=== PATIENT | male | born 1975 | race Caucasian/White ===

== ENCOUNTER 2020-02-20 07:00 | Outpatient (CLI) | payer BC, OTHER ==
--- NOTE | 2020-02-20 16:00 | XRAY Report ---
PROCEDURE: Chest 2 View X-Ray INDICATIONS: CHEST CONGESTION TECHNIQUE: 2 view(s) of the chest. COMPARISON: None. FINDINGS: Surgical changes and devices: None. Lungs and pleura: No pleural effusions or pneumothorax. Lungs are clear. Mediastinum: Mediastinal contours are normal. Heart size is normal. Bones and chest wall: No suspicious bony abnormalities. Soft tissues appear unremarkable. IMPRESSION: Chest without acute cardiopulmonary abnormalities or focal airspace disease. Reviewed by: Ortega Harper MD on 02/20/2020 2:59 PM [facility] Approved by: Ortega Harper MD on 02/20/2020 2:59 PM [facility] Station ID: [id number]
== END 2020-02-20 23:59 | disposition home or self-care (01) ==
LOC: DI.S 07:00
PROVIDERS: ATTEND Physician Assistant Medical
DX: R06.02 Shortness of breath (principal); R09.89 Other specified symptoms and signs involving the circulatory and respiratory systems
CPT/HCPCS: 87275; 87276

== ENCOUNTER 2020-02-20 14:40 | Outpatient (CLI) | payer BC, OTHER | END 2020-02-20 23:59 | disposition home or self-care (01) | LOC: LAB.R 14:40 | PROVIDERS: ATTEND Physician Assistant Medical | DX: R06.02 Shortness of breath (principal); R09.89 Other specified symptoms and signs involving the circulatory and respiratory systems; Z20.828 Contact with and (suspected) exposure to other viral communicable diseases ==

== ENCOUNTER 2021-06-20 08:31 | Day surgery (SDC) | payer BC ==
[2021-06-20] MEDS ORDERED: LACTATED RINGERS 1,000 ML IV ONE ×2 (09:09→10:57)
--- NOTE | 2021-06-20 09:20 | ANESTHESIA ---
Pre-Anesthesia VS, & Labs - Diagnosis screening - Procedure colonoscopy Vital Signs: Temp Pulse Resp BP Pulse Ox 36.7 C 71 16 124/78 96 06/20/21 08:56 06/20/21 08:56 06/20/21 08:56 06/20/21 08:56 06/20/21 08:56 Height: 6 ft 1 in Weight (kg): 152.8 kg Body Mass Index: 44.4 BMI Classification: Morbidly Obese - NPO >8 hours Home Medications and Allergies Home Medications: Ambulatory Orders Losartan Potassium 25 mg PO DAILY 06/20/21 Mometasone/Formoterol [Dulera 50 Mcg-5 Mcg Inhaler] 2 puffs IH DAILY 06/20/21 Albuterol [Proventil Hfa] 1 puffs INH Q4-6H PRN 12/31/12 Losartan Potassium 25 mg PO DAILY 06/20/21 Mometasone/Formoterol [Dulera 50 Mcg-5 Mcg Inhaler] 2 puffs IH DAILY 06/20/21 Allergies/Adverse Reactions: Allergies Allergy/AdvReac Type Severity Reaction Status Date / Time No Known Drug Allergies Allergy Verified 06/20/21 09:12 Anes History & Medical History - Anesthetic History Anesthesia Complications: reports: No previous complications - Medical History Cardiovascular: reports: Hypertension Pulmonary: reports: None Gastrointestinal: reports: Hemorrhoids Urinary: reports: None Musculoskeletal: reports: None Endocrine/Autoimmune: reports: None Skin: reports: Other Smoking Status: Never smoker History of Cancer?: No - Surgical History General: reports: Appendectomy Orthopedic: reports: Arthroscopic surgery Exam General: Alert Dental: WNL Mouth Opening: Greater than 4 Fingerbreadths Neck Mobility: Normal Mallampati classification: II Thyromental Distance: greater than 6 cm Respiratory: Lungs clear Cardiovascular: Regular rate Plan Anesthesia Type: Total IV Consent for Procedure(s) Verified and Reviewed: Yes Code Status: Attempt Resuscitation ASA classification: 2-Mild systemic disease Is this case an emergency?: No
[2021-06-20] MEDS ORDERED: PROPOFOL 500 MG/50 ML 500 MG/50 ML VIAL ONE (09:39)
[2021-06-20] MEDS ORDERED: MIDAZOLAM 2 MG/2 ML VIAL ONE (10:25)
[2021-06-20 11:31] VITALS: BP 117/73
--- NOTE | 2021-06-20 11:45 | ANESTHESIA POST OP EVALUATION ---
Anesthesia Post Eval - Post Anesthesia Eval Vitals: Last Vital Signs Temp 36.2 C L 06/20/21 11:30 Pulse 75 06/20/21 11:30 Resp 16 06/20/21 11:30 BP 117/73 06/20/21 11:30 Pulse Ox 98 06/20/21 11:30 CV Function Including HR & BP: Stable Pain Control: Satisfactory Nausea & Vomiting: Negative Mental Status: Baseline Respiratory Status: Airway Patent Hydration Status: Satisfactory Anesthesia Complications: None
== END 2021-06-20 08:32 | disposition home or self-care (01) ==
LOC: SDS 08:31
PROVIDERS: ATTEND Surgery
PROC: 0DBP8ZZ Excision of Rectum, Via Natural or Artificial Opening Endoscopic (ICD-10-PCS; principal; 2021-06-20 09:45)
DX: Z12.11 Encounter for screening for malignant neoplasm of colon (principal); D12.8 Benign neoplasm of rectum; K64.8 Other hemorrhoids; E66.01 Morbid (severe) obesity due to excess calories; Z68.41 Body mass index [BMI] 40.0-44.9, adult; Z83.71 Family history of colonic polyps
CPT/HCPCS: 45380; J7120

== ENCOUNTER 2021-07-12 07:07 | Outpatient (CLI) | payer BC | END 2021-07-12 07:08 | disposition home or self-care (01) | LOC: LAB.S 07:07 | PROVIDERS: ATTEND Surgery | DX: Z01.812 Encounter for preprocedural laboratory examination (principal); K42.9 Umbilical hernia without obstruction or gangrene; Z20.822 Contact with and (suspected) exposure to COVID-19 ==

== ENCOUNTER 2021-07-13 08:53 | Day surgery (SDC) | payer BC ==
[2021-07-13] MEDS ORDERED: LACTATED RINGERS 1,000 ML IV ONE (09:09)
--- NOTE | 2021-07-13 10:48 | ANESTHESIA ---
Pre-Anesthesia VS, & Labs - Diagnosis umbilical hernia - Procedure umbilical hernia repair Vital Signs: Temp Pulse Resp BP Pulse Ox 37.0 C 70 16 144/83 H 97 07/13/21 09:19 07/13/21 09:19 07/13/21 09:19 07/13/21 09:19 07/13/21 09:19 Height: 6 ft 1 in Weight (kg): 154 kg Body Mass Index: 44.8 BMI Classification: Morbidly Obese - NPO >8 hours Home Medications and Allergies Albuterol [Proventil Hfa] 1 puffs INH Q4-6H PRN 12/31/12 Losartan Potassium 25 mg PO DAILY 06/20/21 Mometasone/Formoterol [Dulera 50 Mcg-5 Mcg Inhaler] 2 puffs IH DAILY 06/20/21 Allergies/Adverse Reactions: Allergies Allergy/AdvReac Type Severity Reaction Status Date / Time No Known Drug Allergies Allergy Verified 06/20/21 09:12 Anes History & Medical History - Anesthetic History Anesthesia Complications: reports: No previous complications - Medical History Cardiovascular: reports: Hypertension Pulmonary: reports: None, Asthma Gastrointestinal: reports: Hemorrhoids Urinary: reports: None Musculoskeletal: reports: None Endocrine/Autoimmune: reports: None Skin: reports: Other Smoking Status: Never smoker Psychosocial: reports: Alcohol (3-4 day) History of Cancer?: No - Surgical History General: reports: Appendectomy, Colonoscopy Orthopedic: reports: Arthroscopic surgery Exam General: Alert, Oriented x3 Dental: WNL Mouth Opening: Greater than 4 Fingerbreadths Mallampati classification: II Thyromental Distance: greater than 6 cm Respiratory: Lungs clear Cardiovascular: Regular rate Plan Anesthesia Type: General, MAC Consent for Procedure(s) Verified and Reviewed: Yes Code Status: Attempt Resuscitation ASA classification: 3-Severe systemic disease Is this case an emergency?: No
[2021-07-13] MEDS ORDERED: fentaNYL 100 MCG/2 ML VIAL IVP PRN (11:03)
[2021-07-13] MEDS ORDERED: HYDROmorphone 0.5 MG/0.5 ML SYRINGE IVP PRN (11:03)
[2021-07-13] MEDS ORDERED: ONDANSETRON 4 MG/2 ML VIAL IVP PRN (11:03)
[2021-07-13] MEDS ORDERED: BUPIVACAINE 0.25% PF 10 ML VIAL ONE (11:03)
[2021-07-13] MEDS ORDERED: MORPHINE 2 MG/ML CARPUJECT IVP PRN (11:03)
[2021-07-13] MEDS ORDERED: NALOXONE 0.4 MG/ML VIAL IVP PRN (11:03)
[2021-07-13] MEDS ORDERED: ATROPINE ABBOJECT 1 MG/10 ML SYRINGE IVP PRN (11:03)
[2021-07-13] MEDS ORDERED: MIDAZOLAM 2 MG/2 ML VIAL ONE (11:04)
[2021-07-13] MEDS ORDERED: LIDOCAINE-MPF 2% 5 ML VIAL ONE (11:04)
[2021-07-13] MEDS ORDERED: fentaNYL 100 MCG/2 ML VIAL ONE ×2 (11:04→11:37)
[2021-07-13] MEDS ORDERED: PROPOFOL 200 MG/20 ML VIAL IVP ONE (11:04)
[2021-07-13] MEDS ORDERED: ROCURONIUM 50 MG/5 ML VIAL ONE (11:04)
[2021-07-13] MEDS ORDERED: DEXAMETHASONE 10 MG/ML VIAL ONE (11:29)
[2021-07-13] MEDS ORDERED: BUPIVACAINE 0.25% PF 10 ML VIAL SUBQ ONE (11:38)
[2021-07-13] MEDS ORDERED: LACTATED RINGERS 1,000 ML IV SCH (12:00)
[2021-07-13] MEDS ORDERED: ONDANSETRON 4 MG/2 ML VIAL ONE (12:00)
[2021-07-13] MEDS ORDERED: KETOROLAC 30 MG/ML VIAL ONE (12:17)
[2021-07-13] MEDS ORDERED: SUGAMMADEX 200 MG/2 ML VIAL IVP ONE (12:24)
--- NOTE | 2021-07-13 12:26 | OPERATIVE REPORT ---
Operative Report - General Procedure Date: 07/13/21 Planned Procedure: Umbilical herniorrhaphy Pre-Op Diagnosis: Umbilical hernia Procedure Performed: Umbilical herniorrhaphy with mesh Post Op Diagnosis: Umbilical hernia - Procedure Note Primary Surgeon: Donavon Lux MD Anesthesia Provider: Ketty Ruiz CRNA Anesthesia Technique: General ET tube, Local (20 mL of 0.25% Marcaine) IV Fluids (mL): 1,000 Estimated Blood Loss (mL): 5 Drain/Tube Type: Other (None.) Indications: As above. Findings: As above. Complications: None. - Other Other Information/Narrative: After verbal and written informed consent was obtained detailing the operation, the alternatives the operation including no operation, risks of infection, bleeding requiring transfusion with its risks, nerve injury, and and after I met with the patient confirming the surgery and the site of surgery, the patient was brought to the operative suite and placed supine on the operating table. Great care was taken to avoid pressure points to prevent pressure necrosis or nerve injury. Monitoring devices were applied along with TEDs and pneumatic compression stockings (to prevent DVT). The patient received preoperative antibiotics for surgical prophylaxis. Ketty Ruiz CRNA sedated and anesthetized the patient for the entire procedure. The patient was prepped and draped in the usual sterile manner. A "time in" then confirmed that the patient was identified with 3 identifiers (name, date, and medical record number), the history and physical was updated and in the chart, the signed consent confirming the procedure was in the chart, the patient was in the correct position, the aforementioned prophylactic measures were in place or given, we had the correct personnel and equipment to complete the procedure and that anesthesia and the surgical team were given an opportunity to express any concerns. With the agreement of everyone in the room we proceeded with the operation. A curvilinear transverse incision was made over the hernia and dissection was carried out down to the hernia sac using a combination of blunt dissection as well as Bovie electrocautery. Hemostasis was obtained using Bovie electrocautery. The hernia sac was a multilobulated affair. The sac was dissected back to the fascial defect and excised using Bovie electrocautery. A Ventralex ST hernia patch (reference #[id number], lot# [id number], use by 2021-10-09) was obtained and deployed into the hernia defect. The hernia defect was 2 cm in diameter and the mesh was over 6 cm in diameter. The mesh was secured to the fascia using 0 PDS and the straps superiorly and inferiorly. Laterally a 0 PDS U stitch was placed to further secure the mesh to the fascia. The fascia was closed over the mesh with additional 0 PDS sutures. The patient was then given an innie by suturing the skin down to the fascia using a simple 3-0 Vicryl suture. The Marcaine was injected at the fascial and skin level. The skin incision was approximated with 4-0 Monocryl in a subcuticular fashion. The skin was cleaned of its prep and Dermabond was applied. At this point a timeout was performed that confirmed that all counts were correct x2, the procedure that was performed, the blood loss, the IV fluids administered, the patient's condition, and any concerns of the operating team had. Having tolerated the procedure well, the patient was taken recovery room in good and stable condition. The plan is for outpatient discharge when the patient is adequately recovered. This document was created in part using voice recognition technology. Because of the inherent limitations of the system, occasional same sounding word substitutions and grammatical errors do occur and persist despite proofreading. Please read this document for content.
[2021-07-13] MEDS ORDERED: LACTATED RINGERS 600 ML IV ONE (12:29)
--- NOTE | 2021-07-13 12:44 | ANESTHESIA POST OP EVALUATION ---
Anesthesia Post Eval - Post Anesthesia Eval Vitals: Last Vital Signs Temp 36.6 C 07/13/21 12:40 Pulse 80 07/13/21 12:40 Resp 19 07/13/21 12:40 BP 134/89 H 07/13/21 12:40 Pulse Ox 98 07/13/21 12:40 CV Function Including HR & BP: Stable Pain Control: Satisfactory Nausea & Vomiting: Negative Mental Status: Baseline Respiratory Status: Airway Patent Hydration Status: Satisfactory Anesthesia Complications: None
[2021-07-13] MEDS ORDERED: HYDROcod/ACETAM 5/325 MG TABLET PO ONE (13:28)
[2021-07-13] MEDS ORDERED: HYDROcod/ACETAM 5/325 MG TABLET ONE (13:29)
[2021-07-13 13:55] VITALS: BP 135/78
== END 2021-07-13 08:54 | disposition home or self-care (01) ==
LOC: SDS 08:53
PROVIDERS: ATTEND Surgery
DX: K42.9 Umbilical hernia without obstruction or gangrene (principal); J45.909 Unspecified asthma, uncomplicated; E66.01 Morbid (severe) obesity due to excess calories; I10 Essential (primary) hypertension; Z68.41 Body mass index [BMI] 40.0-44.9, adult; Z79.899 Other long term (current) drug therapy
CPT/HCPCS: 49585; A9270; C1781; J7040; J7120